=== PATIENT | male | born 1970 | race African-American/Black ===

== ENCOUNTER 2022-12-10 10:05 | Inpatient (IN) | payer OTHER ==
[~2022-12-10] VITALS: Ht 182.9 cm; Wt 88.5 kg
[2022-12-10 10:53] LABS: BASOPHILS % 0.3 % (0.0-1.0); EOSINOPHILS # (AUTO) 0.1 (0.0-0.4); EOSINOPHILS % 0.8 % (0.0-6.0); HEMATOCRIT 45.7 % (38.2-49.6); HEMOGLOBIN 15.1 g/dL (14.0-18.0); LYMPHOCYTES # (AUTO) 2.3 (1.0-3.2); LYMPHOCYTES % 37.9 % (18.0-39.1); MEAN CORPUSCULAR VOLUME 84.6 fL (81-99); MONOCYTES # (AUTO) 0.5 (0.2-0.8); MONOCYTES % 7.4 % (4.4-11.3); NEUTROPHILS # (AUTO) 3.2 (2.1-6.9); NEUTROPHILS % 53.3 % (38.7-80.0); PLATELET COUNT 222 x10e3/uL (140-360); RED CELL DISTRIBUTION WIDTH 12.7 % (11.7-14.4)
[2022-12-10 11:02] LABS: INR 0.95; PROTHROMBIN TIME 12.9 seconds (11.9-14.5)
[2022-12-10 11:03] LABS: PARTIAL THROMBOPLASTIN TIME 23.5 seconds (23.8-35.5)
[2022-12-10 11:14] LABS: ALBUMIN 4.6 g/dL (3.5-5.0); ALBUMIN/GLOBULIN RATIO 1.1 (0.8-2.0); ANION GAP 14.7 mmol/L (8-16); CALCIUM 10.2 mg/dL (8.4-10.2); CREATININE, SERUM 1.16 mg/dL (0.72-1.25); POTASSIUM 4.7 mmol/L (3.5-5.1)
[2022-12-10] MEDS ORDERED: LACTATED RINGER'S 1,000 ML INJ ONE (11:30)
[2022-12-10] MEDS ORDERED: INSULIN REGULAR, HUMAN 100 UNIT/1 ML IV ONE (12:00)
[2022-12-10] MEDS ORDERED: Morphine 4mg INJECTION 4 MG/ML INJ IV PRN (12:30)
[2022-12-10] MEDS ORDERED: ONDANSETRON HCL INJ 2MG/ML 2ML 2 MG/ML VIAL IV PRN (12:30)
[2022-12-10] MEDS ORDERED: HYDRALAZINE HCL 20 MG/ML VIAL IV STA (12:35)
[2022-12-10] MEDS ORDERED: ALBUTEROL/IPRATROPIUM 3 ML NEB NEB PRN (14:30)
[2022-12-10] MEDS ORDERED: BENZONATATE 100 MG CAP PO PRN (14:30)
[2022-12-10] MEDS ORDERED: DIPHENHYDRAMINE HCL 25 MG CAP PO PRN (14:30)
[2022-12-10] MEDS ORDERED: DEXTROSE 50% SYRINGE 50 ML IV PRN ×3 (14:30)
[2022-12-10] MEDS ORDERED: POTASSIUM CHLORIDE 20 MEQ TAB CR PO PRN (14:30)
[2022-12-10] MEDS ORDERED: MELATONIN 5 MG TABLET PO PRN (14:30)
[2022-12-10] MEDS ORDERED: HYDRALAZINE HCL 20 MG/ML VIAL IV PRN (14:30)
[2022-12-10] MEDS ORDERED: LIDOCAINE 4% PATCH TP PRN (14:30)
[2022-12-10] MEDS ORDERED: DOCUSATE SODIUM 100 MG CAP PO PRN (14:30)
[2022-12-10] MEDS ORDERED: ACETAMINOPHEN 325 MG TAB PO PRN (14:30)
[2022-12-10] MEDS ORDERED: SIMETHICONE 80 MG CHEW PO PRN (14:30)
[2022-12-10] MEDS ORDERED: NIFEDIPINE CR 30 MG TAB PO SCH (15:00)
[2022-12-10] MEDS: ENOXAPARIN INJ 80 MG/0.8 ML SYR SC SCH ×2 (16:01→20:57)
[2022-12-10] MEDS: HYDRALAZINE HCL 25 MG TAB PO SCH ×2 (16:01→23:11)
[2022-12-10] MEDS: INSULIN LISPRO 100 UNIT/1 ML 3ML VIAL SQ SCH ×2 (16:48→18:17)
[2022-12-10] MEDS ORDERED: METOPROLOL SUCCINATE 25 MG TAB XL PO SCH (18:30)
[2022-12-10] MEDS ORDERED: LOSARTAN POTASSIUM 100 MG TAB PO SCH (18:30)
[2022-12-10] MEDS ORDERED: CLOPIDOGREL BISULFATE 75 MG TAB PO ONE (18:50)
[2022-12-10] MEDS ORDERED: LOSARTAN POTASSIUM 25 MG TAB PO SCH (19:00)
[2022-12-10] MEDS: ATORVASTATIN 40 MG TAB PO SCH (19:20)
[2022-12-10 22:00] VITALS: BP 179/88
[2022-12-10] MEDS ORDERED: NIFEDIPINE ER60 M1 PO (22:47)
[2022-12-10] MEDS ORDERED: METFORMIN HCL500 M1 PO (22:47)
[2022-12-10 22:55] VITALS: BP 179/88
[2022-12-10 22:57] VITALS: BP 179/88
[2022-12-11] VITALS (35 sets, daily range): BP systolic 129–192; BP diastolic 75–93
[2022-12-11] MEDS: SODIUM CHLORIDE 0.9% 1000ML 1,000 ML IV SCH ×3 (00:16→20:00)
[2022-12-11 05:00] LABS: BASOPHILS % 0.3 % (0.0-1.0); EOSINOPHILS # (AUTO) 0.1 (0.0-0.4); EOSINOPHILS % 1.4 % (0.0-6.0); HEMATOCRIT 41.5 % (38.2-49.6); HEMOGLOBIN 13.7 g/dL (14.0-18.0); LYMPHOCYTES # (AUTO) 2.6 (1.0-3.2); MEAN CORPUSCULAR HEMOGLOBIN 27.6 pg (28-32); MEAN CORPUSCULAR VOLUME 83.7 fL (81-99); MONOCYTES # (AUTO) 0.5 (0.2-0.8); MONOCYTES % 8.7 % (4.4-11.3); NEUTROPHILS % 48.4 % (38.7-80.0); PLATELET COUNT 193 x10e3/uL (140-360); RED BLOOD COUNT 4.96 x10e6/uL (4.3-5.7); RED CELL DISTRIBUTION WIDTH 12.6 % (11.7-14.4)
[2022-12-11 05:22] LABS: ALBUMIN 3.5 g/dL (3.5-5.0); ALBUMIN/GLOBULIN RATIO 1.1 (0.8-2.0); ANION GAP 13.8 mmol/L (8-16); CHOL/HDL RATIO 4.2 (3.9-4.7); CREATININE, SERUM 0.81 mg/dL (0.72-1.25); POTASSIUM 3.8 mmol/L (3.5-5.1)
[2022-12-11 05:35] LABS: MAGNESIUM 1.7 MG/DL (1.3-2.1); PHOSPHORUS 3.5 MG/DL (2.3-4.7)
[2022-12-11 05:57] LABS: THYROID STIMULATING HORMONE 0.722 uIU/mL (0.350-4.940)
[2022-12-11] MEDS: PANTOPRAZOLE SOD 40 MG TABEC PO SCH (07:30)
[2022-12-11] MEDS ORDERED: HEPARIN SOD (PORCINE) 1000 UNIT/ML 30ML ONE (07:49)
[2022-12-11] MEDS ORDERED: LIDOCAINE HCL 1% 30ML-PF VIAL ONE (07:50)
[2022-12-11] MEDS ORDERED: MIDAZOLAM HCL 2 MG/2 ML VIAL ONE (07:50)
[2022-12-11] MEDS ORDERED: FENTANYL CITRATE/PF 100MCG/2 ML INJ ONE (07:50)
[2022-12-11] MEDS ORDERED: HEPARIN SOD/SOD CHLORIDE 2,000 ML ONE (07:50)
[2022-12-11] MEDS ORDERED: IOPAMIDOL 370 MG/ML 100 ML INFUS..BTL INJ ONE (07:50)
[2022-12-11] MEDS ORDERED: SODIUM CHLORIDE 0.9% 1000ML 1,000 ML ONE (07:51)
[2022-12-11] MEDS ORDERED: METOPROLOL SUCCINATE 50 MG TAB XL PO SCH (09:00)
[2022-12-11] MEDS ORDERED: HEPARIN 25,000 UNIT 1,000 UNIT in DEXTROSE 5% 250ML 250 ML IV SCH ×2 (09:15→09:30)
[2022-12-11] MEDS ORDERED: ALTEPLASE RECOMBINANT 2 MG/2 ML VIAL ONE (09:17)
[2022-12-11] MEDS ORDERED: HEPARIN 25,000 UNIT DRIP IV ONE (09:18)
[2022-12-11] MEDS ORDERED: ALTEPLASE 50 MG/VIAL (29 MILLION IU) ONE (09:19)
[2022-12-11] MEDS: ALTEPLASE RECOMBINANT IV SCH ×2 (10:02→18:00)
[2022-12-11] MEDS: SODIUM CHLORIDE 0.9% IV SCH ×2 (10:02→18:00)
[2022-12-11] MEDS: ASPIRIN 81 MG CHEW TAB PO SCH (13:25)
[2022-12-11] MEDS: NIFEDIPINE CR 30 MG TAB PO SCH (13:26)
[2022-12-11] MEDS: METOPROLOL SUCCINATE 50 MG TAB XL PO SCH ×2 (13:27→16:57)
[2022-12-11] MEDS: LOSARTAN POTASSIUM 100 MG TAB PO SCH (13:28)
[2022-12-11] MEDS: CLOPIDOGREL BISULFATE 75 MG TAB PO SCH (13:28)
[2022-12-11] MEDS: INSULIN LISPRO 100 UNIT/1 ML 3ML VIAL SQ SCH ×4 (13:29→21:01)
[2022-12-11] MEDS: HYDRALAZINE HCL 20 MG/ML VIAL IV PRN (14:00)
[2022-12-11] MEDS: HYDRALAZINE HCL 25 MG TAB PO SCH ×3 (15:00→21:00)
[2022-12-11 18:16] LABS: HEMATOCRIT 41.8 % (38.2-49.6); HEMOGLOBIN 13.4 g/dL (14.0-18.0)
[2022-12-11] MEDS: ATORVASTATIN 40 MG TAB PO SCH (21:00)
[2022-12-12] VITALS (18 sets, daily range): BP systolic 123–187; BP diastolic 65–90
[2022-12-12] MEDS: SODIUM CHLORIDE 0.9% 1000ML 1,000 ML IV SCH (06:00)
[2022-12-12 06:13] LABS: HEMATOCRIT 40.6 % (38.2-49.6); HEMOGLOBIN 14.1 g/dL (14.0-18.0)
[2022-12-12] MEDS: INSULIN LISPRO 100 UNIT/1 ML 3ML VIAL SQ SCH ×2 (07:30→13:12)
[2022-12-12] MEDS: PANTOPRAZOLE SOD 40 MG TABEC PO SCH (07:30)
[2022-12-12] MEDS ORDERED: HEPARIN 25,000 UNIT DRIP IV ONE (08:49)
[2022-12-12] MEDS ORDERED: FENTANYL CITRATE/PF 100MCG/2 ML INJ ONE (08:50)
[2022-12-12] MEDS ORDERED: MIDAZOLAM HCL 2 MG/2 ML VIAL ONE ×2 (08:50→10:24)
[2022-12-12] MEDS ORDERED: NITROGLYCERIN 400 MCG/SPRAY 4.9 GM BTL ONE (08:50)
[2022-12-12] MEDS ORDERED: IOPAMIDOL 370 MG/ML 100 ML INFUS..BTL INJ ONE (08:51)
[2022-12-12] MEDS ORDERED: LIDOCAINE HCL 1% LOCAL INJ 20 ML VIAL ONE (08:52)
[2022-12-12] MEDS ORDERED: HEPARIN SOD/SOD CHLORIDE 2,000 ML ONE (09:00)
[2022-12-12] MEDS ORDERED: NITROGLYCERIN/D5W 200 MCG/ML 0 ML ONE (09:00)
[2022-12-12] MEDS ORDERED: SODIUM CHLORIDE 0.9% 1000ML 1,000 ML ONE ×2 (09:00→14:42)
[2022-12-12] MEDS ORDERED: SODIUM CHLORIDE 0.9% 250ML 250 ML ONE (09:46)
[2022-12-12] MEDS ORDERED: Vancomycin IV 1 GM VIAL ONE (09:46)
[2022-12-12] MEDS: ASPIRIN 81 MG CHEW TAB PO SCH (09:56)
[2022-12-12] MEDS: CLOPIDOGREL BISULFATE 75 MG TAB PO SCH (09:56)
[2022-12-12] MEDS ORDERED: ALTEPLASE RECOMBINANT 2 MG/2 ML VIAL ONE ×2 (10:00→10:12)
[2022-12-12] MEDS ORDERED: ASPIRIN 325 MG TAB ONE (10:05)
[2022-12-12] MEDS ORDERED: ASPIRIN 81 MG CHEW TAB ONE (10:05)
[2022-12-12] MEDS ORDERED: HYDRALAZINE HCL 20 MG/ML VIAL ONE (10:35)
[2022-12-12 11:07] LABS: BASOPHILS % 0.4 % (0.0-1.0); EOSINOPHILS % 0.5 % (0.0-6.0); HEMATOCRIT 33.2 % (38.2-49.6); INR 1.33; LYMPHOCYTES # (AUTO) 3.3 (1.0-3.2); LYMPHOCYTES % 38.9 % (18.0-39.1); MEAN CORPUSCULAR HEMOGLOBIN 27.7 pg (28-32); MEAN CORPUSCULAR HGB CONC 33.1 g/dL (31-35); MEAN CORPUSCULAR VOLUME 83.6 fL (81-99); MONOCYTES # (AUTO) 0.6 (0.2-0.8); MONOCYTES % 7.2 % (4.4-11.3); NEUTROPHILS # (AUTO) 4.4 (2.1-6.9); NEUTROPHILS % 52.4 % (38.7-80.0); PLATELET COUNT 176 x10e3/uL (140-360); PROTHROMBIN TIME 16.7 seconds (11.9-14.5); RED BLOOD COUNT 3.97 x10e6/uL (4.3-5.7); RED CELL DISTRIBUTION WIDTH 12.7 % (11.7-14.4)
[2022-12-12] MEDS ORDERED: BIVALRIUDIN 250 MG/VIAL VIAL IV ONE ×3 (11:08→14:11)
[2022-12-12] MEDS ORDERED: SODIUM CHLORIDE 0.9% 100 ML ONE (11:09)
[2022-12-12] MEDS ORDERED: SODIUM CHLORIDE 0.9% 500ML 500 ML ONE (11:11)
[2022-12-12 11:18] LABS: ALBUMIN 2.7 g/dL (3.5-5.0); ANION GAP 13.1 mmol/L (8-16); CALCIUM 7.8 mg/dL (8.4-10.2); CREATININE, SERUM 0.74 mg/dL (0.72-1.25); POTASSIUM 4.1 mmol/L (3.5-5.1)
[2022-12-12 12:30] LABS: HEMATOCRIT 35.6 % (38.2-49.6); HEMOGLOBIN 11.6 g/dL (14.0-18.0)
[2022-12-12] MEDS: LOSARTAN POTASSIUM 100 MG TAB PO SCH (13:05)
[2022-12-12] MEDS: NIFEDIPINE CR 30 MG TAB PO SCH (13:05)
[2022-12-12] MEDS: HYDRALAZINE HCL 25 MG TAB PO SCH (13:06)
[2022-12-12] MEDS: METOPROLOL SUCCINATE 50 MG TAB XL PO SCH ×2 (13:06→17:27)
[2022-12-12] MEDS ORDERED: BIVALRIUDIN 250 MG/VIAL VIAL IV SCH (13:30)
[2022-12-12] MEDS ORDERED: HYDROCODONE/APAP 5MG-325MG TAB PO PRN (14:00)
[2022-12-12] MEDS ORDERED: Morphine 2mg Syringe 2 MG/ML SYR IV PRN (14:00)
[2022-12-12] MEDS ORDERED: ONDANSETRON HCL INJ 2MG/ML 2ML 2 MG/ML VIAL IV PRN (14:00)
[2022-12-12 14:59] LABS: FREE T4 (FREE THYROXINE) 1.02 ng/dL (0.8-1.8); THYROID STIMULATING HORMONE 0.621 uIU/mL (0.350-4.940)
[2022-12-12] MEDS ORDERED: SODIUM CHLORIDE 0.9% IV SCH (15:00)
[2022-12-12] MEDS ORDERED: [UNRECOGNIZED DRUG - OTHER] IV SCH (15:00)
[2022-12-12] MEDS ORDERED: INSULIN LISPRO 100 UNIT/1 ML 3ML VIAL SQ SCH ×2 (16:30)
[2022-12-12] MEDS: HYDRALAZINE HCL 20 MG/ML VIAL IV PRN (17:27)
[2022-12-12] MEDS ORDERED: INSULIN GLARGINE 100 UNITS/ML VIAL SQ SCH (21:00)
== END 2022-12-12 18:00 | disposition critical access hospital, planned readmission (94) | DRG 271 ==
LOC: ER 10:08 → ERHOLD 12:28 → MED/SURG 21:52 → ICU 12-11 12:48
PROVIDERS: ADMIT Internal Medicine; ATTEND Internal Medicine
PROC: B4101ZZ Fluoroscopy of Abdominal Aorta using Low Osmolar Contrast (ICD-10-PCS; principal; 2022-12-11)
PROC: B41F1ZZ Fluoroscopy of Right Lower Extremity Arteries using Low Osmolar Contrast (ICD-10-PCS; 2022-12-11)
PROC: 3E03317 Introduction of Other Thrombolytic into Peripheral Vein, Percutaneous Approach (ICD-10-PCS; 2022-12-11)
PROC: 04CR3ZZ Extirpation of Matter from Right Posterior Tibial Artery, Percutaneous Approach (ICD-10-PCS; 2022-12-12)
PROC: 047M341 Dilation of Right Popliteal Artery with Drug-eluting Intraluminal Device, using Drug-Coated Balloon, Percutaneous Approach (ICD-10-PCS; 2022-12-12)
PROC: 047M3ZZ Dilation of Right Popliteal Artery, Percutaneous Approach (ICD-10-PCS; 2022-12-12)
PROC: 047R3ZZ Dilation of Right Posterior Tibial Artery, Percutaneous Approach (ICD-10-PCS; 2022-12-12)
PROC: 047P3ZZ Dilation of Right Anterior Tibial Artery, Percutaneous Approach (ICD-10-PCS; 2022-12-12)
PROC: B41F1ZZ Fluoroscopy of Right Lower Extremity Arteries using Low Osmolar Contrast (ICD-10-PCS; 2022-12-12)
PROC: B41G1ZZ Fluoroscopy of Left Lower Extremity Arteries using Low Osmolar Contrast (ICD-10-PCS; 2022-12-12)
DX: I73.9 Peripheral vascular disease, unspecified (principal); T79.A21A Traumatic compartment syndrome of right lower extremity, initial encounter; E11.9 Type 2 diabetes mellitus without complications; I10 Essential (primary) hypertension; E78.5 Hyperlipidemia, unspecified; F17.210 Nicotine dependence, cigarettes, uncomplicated; Z91.14 Patient's other noncompliance with medication regimen; Z79.84 Long term (current) use of oral hypoglycemic drugs; Z79.82 Long term (current) use of aspirin
CPT/HCPCS: 36415; 37214; 37224; 37228; 37232; 75630; 75710; 75716; 80053; 80061; 82948; 83036; 83735; 84100; 84439; 84443; 85014; 85018; 85025; 85384; 85610; 85730; 93005; 93306; 93925; 93926; 93970; 94799; 96372; 99152; 99153; 99285; C1725; C1757; C1766; C1769; C1887; C1894; J0360; J0583; J1644; J1650; J1817; J2001; J2250; J2997; J3010; J3370; J7030; J7040; J7050; J7121; Q9967